=== PATIENT | male | born 1945 | race Caucasian/White ===

== ENCOUNTER → 2019-06-20 | Outpatient (CLI) | payer MEDICARE ==
[2019-06-20 10:24] LABS: African American GFR (CKD) >90 (>60 ml/min/1.73 sqM); Blood Urea Nitrogen 11 mg/dL (9-20)
--- NOTE | 2019-06-20 11:50 | CT ---
EXAMINATION TYPE: CT chest w con DATE OF EXAM: 06/20/2019 COMPARISON: NONE HISTORY: Solitary Pulmonary Nodule CT DLP: 448 mGycm. Automated Exposure Control for Dose Reduction was Utilized. TECHNIQUE: CT scan of the thorax is performed following with IV Contrast, patient injected with 100 mL of Isovue 300. FINDINGS: LUNGS: There is a subsolid nodular density in the right middle lobe tethering the interlobar fissure on sagittal series 7 image 28. This is marked on axial image 35. Lingular scarring is seen. Mild unde rlying emphysematous change. No pleural effusion or pneumothorax. MEDIASTINUM: There are no greater than 1 cm hilar or mediastinal lymph nodes. Very trace pericardial effusion anteriorly. Mild coronary artery calcifications. OTHER: Double aortic stent graft is partially visualized with renal atherosclerosis and stents. The n ative abdominal aorta measures up to 6.3 x 4.8 cm in its visualized portion. Low-density of the liver suggests mild degree hepatic steatosis. Gallbladder is noted to be elongated. 5.1 cm left upper pole renal cyst is seen. Mild multilevel degenerative changes of the spine. IMPRESSION: 1. Solid right middle lobe pulmonary nodule is moderately suspicious for neoplasm as there is tetheri ng of the adjacent interlobar fissure. PET CT is recommended for further workup. No suspicious medias tinal adenopathy. 2. Partially visualized surgically fixated abdominal aortic aneurysm measures up to 6.3 cm in anterio r posterior dimension.
== END | disposition home or self-care (01) ==
LOC: RADCTMAIN 09:20
PROVIDERS: ATTEND Internal Medicine Critical Care Medicine
DX: R91.1 Solitary pulmonary nodule (principal); Z98.890 Other specified postprocedural states
CPT/HCPCS: 82565; 84520; 71260; 36415; Q9967

== ENCOUNTER → 2019-08-05 | Outpatient (CLI) | payer MEDICARE ==
--- NOTE | 2019-08-08 09:01 | PE ---
EXAMINATION TYPE: PET CT fusion skull to thigh DATE OF EXAM: 08/05/2019 COMPARISON: Chest CT June 20, 2019. HISTORY: Abnormal CT, solitary pulmonary nodule TECHNIQUE: Following the intravenous administration of 13.13 mCi of F-18 FDG, whole body images are performed from the skull base to the midthigh. Images are reviewed on the computer in the coronal, a xial, and sagittal planes. Reconstructed rotating images are created on independent workstation and reviewed on the computer. A noncontrast CT is performed in conjunction with the PET scan. SCAN: Initial Scan FINDINGS: SKULL BASE AND NECK: No suspicious hypermetabolic uptake. CHEST, MEDIASTINUM, AND HILAR REGION: Persistent background moderate underlying emphysematous change. Persistent nodular consolidation or lobulated nodule right middle lobe axial image 11 measuring 1.9 x 1.5 cm is ametabolic. No areas of suspicious hypermetabolic uptake. ABDOMEN AND PELVIS: No areas of suspicious hypermetabolic uptake. OSSEOUS STRUCTURES: No areas of suspicious hypermetabolic uptake. OTHER CT: Ascending aorta measures up to 3.9 cm in diameter axial image 104. There is mild/moderate c oronary artery calcification which is noted marked for underlying coronary artery disease. Large exophytic 5.3 cm simple appearing cyst upper pole left kidney axial image 165. There is aortobi iliac stent graft through [place] AAA measuring up to 5.4 cm AP diameter axial image 181. Aneurysm ext ends into right common iliac artery. Surgical changes right iliac bifurcation with streak artifact. D iverticula in the sigmoid colon. Multilevel spurring of the thoracolumbar spine. IMPRESSION: No suspicious hypermetabolic uptake in the area of concern in right middle lobe nodule or nodular consolidation. Short-term CT follow-up in 6 months time is advised to ensure no interval [facility].
== END | disposition home or self-care (01) ==
LOC: RADPETMAIN 16:48
PROVIDERS: ATTEND Internal Medicine Critical Care Medicine
DX: R91.1 Solitary pulmonary nodule (principal)
CPT/HCPCS: 78815; A9552